=== PATIENT | female | born 1990 | race American Indian/Alaskan Native ===

== ENCOUNTER 2020-11-26 08:37 | Day surgery (SDC) | payer OTHER ==
--- NOTE | 2020-11-20 13:00 | Anesthesia Consultation ---
Anesthesia Consult and Med Hx Date of service: 11/26/20 - Airway Anesthetic Teeth Evaluation: Chipped ROM Head & Neck: Adequate Mental/Hyoid Distance: Adequate Mallampati Class: Class III Intubation Access Assessment: Probably Good - Pre-Operative Health Status ASA Pre-Surgery Classification: ASA3 Proposed Anesthetic Plan: General - Pulmonary Hx Smoking: No Hx Respiratory Symptoms: Yes (Pulmonary HTN) Hx Pneumonia: Yes (IN THE PAST) Hx Sleep Apnea: Yes (DX SLEEP APNEA) - Cardiovascular System Hx Hypertension: Yes (Systolic CHF, chronic; Dilated cardiomyopathy) Hx Internal Defibrillator: Yes (05/2019-denies discharge) - Central Nervous System Hx Neuromuscular Disorder: Yes (Bilateral optic neuritis) Hx Psychiatric Problems: Yes (Anxiety/Depression) - Endocrine Hx Non-Insulin Dependent Diabetes: Yes (PRE) - Hematic Hx Anemia: Yes (Pt had recent labs on her phone: 9.4/31.9) - Other Systems Hx Alcohol Use: No (OCCASSIONALLY) Hx Substance Use: No Hx Cancer: No Hx Obesity: Yes - Additional Comments Anesthesia Medical History Comments: Pt with CHF. Had ECHO yesterday and reports EF 20-25%. Hard results pending for our review. NST report from [id number] in her chart.
[2020-11-20 13:09] LABS: Hematocrit 27.5 % (30.3-42.9); Hemoglobin 8.6 gm/dl (10.1-14.3); Mean Corpuscular HGB Conc 31 % (30-34); Platelet Count 258 K/mm3 (140-440); Red Cell Distribution Width 16.7 % (13.2-15.2)
[2020-11-20 13:10] LABS: Mean Corpuscular Volume 69 fl (79-97)
[2020-11-20 13:28] LABS: Blood Urea Nitrogen 14 mg/dL (7-17); Calcium 8.7 mg/dL (8.4-10.2); Hemolysis Index 0
[2020-11-20 14:08] LABS: BUN/Creatinine Ratio 20
--- NOTE | 2020-11-25 16:34 | History and Physical Report ---
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 Operations: Lumbar puncture (2017)() Defibrillator placed (05/2020) Abnormal PAP: negative Infection History HIV Risk Eval: no Hx of STD: has never had sex Active Medications (reviewed today): ONDANSETRON HCL 4 MG ORAL TABLET (ONDANSETRON HCL) DICLOFENAC SODIUM 50 MG ORAL TABLET DELAYED RELEASE (DICLOFENAC SODIUM) 50 mg 3 times daily as needed for painful menstrual cramps ROCÍO-BE 0.35 MG ORAL TABLET (NORETHINDRONE) 1 tablet po daily METOLAZONE 2.5 MG ORAL TABLET (METOLAZONE) FARXIGA TABLET (DAPAGLIFLOZIN PROPANEDIOL TABS) VITAMIN B-12 1000 MCG ORAL TABLET (CYANOCOBALAMIN) ESCITALOPRAM OXALATE TABLET (ESCITALOPRAM OXALATE TABS) PROMETHAZINE HCL 25 MG RECTAL SUPPOSITORY (PROMETHAZINE HCL) 1 per rectum q6hrs prn MULTIVITAMINS ORAL CAPSULE (MULTIPLE VITAMIN) QVAR REDIHALER 40 MCG/ACT INHALATION AEROSOL BREATH ACTIVATED (BECLOMETHASONE DIPROP HFA) KLOR-CON PACKET (POTASSIUM CHLORIDE PACK) FERROUS SULFATE 325 (65 FE) MG ORAL TABLET (FERROUS SULFATE) 1 po qd FAMOTIDINE 40 MG ORAL TABLET (FAMOTIDINE) ENTRESTO TABLET (SACUBITRIL-VALSARTAN TABS) BUMETANIDE TABLET (BUMETANIDE TABS) SPIRONOLACTONE TABLET (SPIRONOLACTONE TABS) ATORVASTATIN CALCIUM TABLET (ATORVASTATIN CALCIUM TABS) CARVEDILOL TABLET (CARVEDILOL TABS) ASPIRIN 81 MG ORAL TABLET (ASPIRIN) ALBUTEROL SULFATE (2.5 MG/3ML) 0.083% INHALATION NEBULIZATION SOLUTION (ALBUTEROL SULFATE) Current Allergies (reviewed today): WELLBUTRIN SR (BUPROPION HCL) (Critical) * PINEAPPLES (Critical) Past Medical History: Reviewed history from 10/10/2020 and no changes required: CHF (2016) [employer]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) Anemia [facility] (2019) Hyperlipidemia Sleep apnea (2019) CPAP Intracranial hypertension (2017) Hypertension Depression Past Surgical History: Reviewed history from 10/10/2020 and no changes required: Lumbar puncture (2017)() Defibrillator placed (05/2020) Family History Summary: Reviewed history Last on 10/10/2020 and no changes required:11/25/2020 Other Family Member - Has No Family History of Uterine Cancer - Entered On: 01/14/2019 Other Family Member - Has No Family History of Small Bowel Cancer - Entered On: 01/14/2019 Other Family Member - Has No Family History of Stomach Cancer - Entered On: 01/14/2019 Other Family Member - Has No Family History of Pancreatic Cancer - Entered On: 01/14/2019 Other Family Member - Has No Family History of Ovarvian Cancer - Entered On: 01/14/2019 Other Family Member - Has No Family History of Kidney/Urinary Tract Cancer - Entered On: 01/14/2019 Other Family Member - Has No Family History of Spontaneous DVT-PE - Entered On: 01/14/2019 Other Family Member - Has No Family History of Colon Cancer - Entered On: 01/14/2019 Other Family Member - Has No Family History of Brain Cancer - Entered On: 01/14/2019 Other Family Member - Has No Family History of Breast Cancer - Entered On: 01/14/2019 Other Family Member - Has No Family History of Biliary Tract Cancer - Entered On: 01/14/2019 Social History: Reviewed history from 11/30/2018 and no changes required: Patient is single Smoking History: Patient has never smoked. Risk Factors: Smoked Tobacco Use: Never smoker Smokeless Tobacco Use: Never Drug use: no HIV high-risk behavior: no Alcohol use: yes Exercise: no Seatbelt use: 100 % Previous Tobacco Use: Signed On - 11/13/2020 Smoked Tobacco Use: Never smoker Smokeless Tobacco Use: Never Passive smoke exposure: no Drug use: no HIV high-risk behavior: no Previous Alcohol Use: Signed On 11/13/2020 Alcohol use: yes Type: rarely occ Drinks per day: social Exercise: no Seatbelt use: 100 % PAP Smear History: Date of Last PAP Smear: 10/10/2020 Physical Exam Appearance: well developed, well nourished, no acute distress Other Exams Lungs: no rales, rhonchi, or wheezes Heart: S1, S2, no murmur, rub, or gallop Genitourinary Exam Uterus: deferred for EUA Impression & Recommendations: Problem # 1: Excessive and frequent menstruation with regular cycle (ICD-626.2) ([id number]) Diagnosis explained to patient . Questions answered. Discussed with patient various medical and surgical therapies common for treatment: Hormonal/medical therapy,endometrial ablation or hysterectomy. Will proceed with hysteroscopy dilation and curettage at this time. She declines any further evaluation. Consent reviewed and signed . Possible laparoscopy or laparotomy explained to patient. The risks and alternatives for this surgery were reviewed with the patient. She was informed of possible bleeding, infection, injury to bowel, bladder, ureters or other adjacent organs. Also discussed possible uterine perforation and scarring that may prevent . The patient was instructed/informed the following: The normal length of hospital stay for this procedure. Nothing to eat or drink after midnight the evening prior to surgery. Pre-op instruction sheets given. Infection precautions reviewed, patient to call for any signs or symptoms of infection. The usual discomforts associated with this procedure were detailed. Proper use of pain medicines was reviewed. Patient was given ample opportunity to have all her questions answered before signing informed consent. Medications and Allergies Allergies Allergy/AdvReac Type Severity Reaction Status Date / Time bupropion [From Wellbutrin] Allergy Unknown Verified 11/20/20 15:35 pineapple AdvReac Itching Verified 11/20/20 15:35 Home Medications Medication Instructions Recorded Confirmed Last Taken Type Albuterol Sulfate [Proair 90 mcg IH PRN PRN 11/19/20 11/19/20 Unknown History Respiclick] Aspirin [Adult Aspirin] 81 mg PO DAILY 11/19/20 11/19/20 Unknown History AtorvaSTATin [Lipitor] 40 mg PO QHS 11/19/20 11/19/20 Unknown History Bumetanide 2 mg PO BID 11/19/20 11/19/20 Unknown History Dapagliflozin Propanediol [Farxiga] 10 mg PO DAILY 11/19/20 11/19/[address] (Nf) 50 mg PO TID PRN 11/19/20 11/19/20 Unknown History Escitalopram Oxalate [Lexapro] 15 mg PO DAILY 11/19/20 11/19/20 Unknown History Famotidine [Acid-Pep] 20 mg PO DAILY 11/19/20 11/19/20 Unknown History Mecobalamin [B12 Active] 1,000 mcg PO BID 11/19/20 11/19/20 Unknown History Sacubitril/Valsartan [Entresto 97 1 each PO BID 11/19/20 11/19/20 Unknown History mg-103 mg Tablet] Spironolactone 50 mg PO DAILY 11/19/20 11/19/20 Unknown History carvediloL [Coreg] 25 mg PO BID 11/19/20 11/19/20 Unknown History metOLazone [Zaroxolyn] 2.5 mg PO PRN PRN 11/19/20 11/19/20 Unknown History Beclomethasone Dipropionate [Qvar] 80 mcg IH BID 11/20/20 11/20/20 Unknown History Active Meds: Active Medications Lactated Ringer's (Lactated Ringers) 1,000 mls @ 42 mls/hr IV DIRECT THUY Cefazolin Sodium 3 gm/ Sodium (Chloride) 100 mls @ 100 mls/30 min IV PREOP NR; Protocol Results - Labs 11/20/20 12:20 11/20/20 12:20 Assessment and Plan - Patient Problems (1) Excessive and frequent menstruation with irregular cycle Status: Acute (2) Anemia Status: Acute (3) CHF (congestive heart failure) Status: Chronic (4) BMI 60.0-69.9, adult Status: Chronic
[~2020-11-26 08:37] MED LIST: LACTATED RINGERS 1,000 ML IV SCH
[2020-11-26] MEDS ORDERED: fentaNYL 100 MCG/2 ML INJ ONE (08:40)
[2020-11-26] MEDS ORDERED: propofoL 200 MG/20 ML VIAL IV ONE ×2 (08:40→13:49)
[2020-11-26] MEDS ORDERED: LIDOCAINE MPF (2%) 20 MG/1 ML VIAL 5 ML ONE (08:40)
[2020-11-26] MEDS ORDERED: HYDROcodone/ACETAMINOPHEN 5-325 MG TAB PO PRN (08:52)
[2020-11-26] MEDS ORDERED: ONDANSETRON 4 MG/2 ML INJ IV PRN ×2 (08:52→14:36)
[2020-11-26] MEDS ORDERED: fentaNYL 100 MCG/2 ML INJ IV PRN (08:52)
--- NOTE | 2020-11-26 08:52 | Anesthesia Day of Surgery ---
Anesthesia Day of Surgery - Day of Surgery Patient Examined: Yes Patient H&P Reviewed: Yes Patient is NPO: Yes Beta Blockers: Yes
[2020-11-26] MEDS ORDERED: ROCURONIUM 50 MG/5 ML INJ IV ONE (11:00)
[2020-11-26] MEDS ORDERED: SUCCINYLCHOLINE CHLORIDE 200 MG/10 ML INJ MDV ONE (11:00)
[2020-11-26] MEDS ORDERED: ONDANSETRON 4 MG/2 ML INJ ONE ×2 (11:00→14:14)
[2020-11-26] MEDS ORDERED: dexAMETHasone 20 MG/5 ML VIAL ONE (11:00)
[2020-11-26] MEDS ORDERED: KETAMINE/STERILE WATER 50 MG/ML SYRINGE ONE (11:07)
[2020-11-26] MEDS ORDERED: ePHEDrine SULFATE 50 MG/1 ML INJ ONE (11:08)
[2020-11-26] MEDS ORDERED: SUGAMMADEX SODIUM 200 MG/2 ML VIAL IV ONE (13:49)
[2020-11-26] MEDS ORDERED: .SODIUM CHLORIDE 0.9% IRRIG SOLN 3000 ML IR ONE (13:50)
--- NOTE | 2020-11-26 14:02 | Post Operative Note ---
Pre-op diagnosis: Menometrorrhagia Post-op diagnosis: same Findings: Grossly normal endometrium. ? small polyps Procedure: Diagnostic hysteroscopy, D&C, polypectomy Anesthesia: GETA Surgeon: GISELLE HEMPHILL Estimated blood loss: minimal Pathology: list (endometrial tissue) Specimen disposition: to lab Condition: stable Disposition: PACU
--- NOTE | 2020-11-26 14:07 | Discharge Summary ---
Providers - Providers Date of discharge: 11/26/20 Attending physician: GISELLE HEMPHILL Primary care physician: CAREER SERVICES ASSISTANT Hospitalization Condition: Good Procedures: Diagnostic hysteroscopy D&C, Polypectomy Hospital course: Normal Disposition: DC- TO HOME OR SELFCARE Final Discharge Diagnosis (Prints w/discharge instructions): menometrorrhagia, s/p h'scopy D&C - Discharge Diagnoses (1) Excessive and frequent menstruation with irregular cycle Status: Acute (2) Anemia Status: Chronic (3) CHF (congestive heart failure) Status: Chronic (4) BMI 60.0-69.9, adult Status: Chronic Core Measure Documentation - Palliative Care Palliative Care/ Comfort Measures: Not Applicable - Core Measures Any of the following diagnoses?: none Exam - Constitutional Vitals: Temp Pulse Resp BP Pulse Ox 98 F 70 16 112/55 97 11/26/20 09:10 11/26/20 09:10 11/26/20 09:10 11/26/20 09:10 11/26/20 09:10 Plan Activity: other (No sex, no driving for 24 hours) Weight Bearing Status: Weight Bear as Tolerated Diet: low fat, low cholesterol, low salt Special Instructions: no heavy lifting (greater than 25lbs) Follow up with: PRIMARY CAREMD [Primary Care Provider] - 48 Hours GISELLE HEMPHILL MD [Staff Physician] - (As scheduled)
[2020-11-26 16:12] VITALS: BP 119/87
--- NOTE | 2020-11-26 19:15 | Post Anesthesia Evaluation ---
- Post Anesthesia Evaluation Patient Participated: Yes Airway Patent: Yes Stable Respiratory Function: Yes Nausea/Vomiting: No Temp > 96.8F: Yes Pain Manageable: Yes Adequeate Hydration: Yes Anesthesia Complications: No
--- NOTE | 2020-11-27 15:35 | Operative Report ---
Operative Report Operative Report: Date: 11/26/2020 PREOPERATIVE DIAGNOSES: 1. Excessive and frequent menstruation with regular cycle 2. Anemia 3. BMI 63.0kg/m2 4. Congestive heart failure POSTOPERATIVE DIAGNOSES: 1. Excessive and frequent menstruation with regular cycle unresponsive to progestin therapy 2. Anemia 3. BMI 63.0kg/m2 4. Congestive heart failure 5. Uterine Polyps PROCEDURE PERFORMED: 1. Hysteroscopy. 2. Dilation and curettage (D&C) 3. Removal of uterine polyps ANESTHESIA: GETA ESTIMATED BLOOD LOSS: Less than <20 cc. INDICATIONS: This is a 30-year-old -[place] female that presents menorrhagia, anemia and CHF who has been previously unresponsive to POPs. She has never had sex and is unable to tolerate speculum and pelvic exams in the office. 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 PROCEDURE: The patient was seen in the preoperative suite. Expected procedure and postoperative course discussed with her. She was taken to the operative suite where GETA was performed. She was placed in a dorsal lithotomy position. . A bimanual exam was done, the uterus was unable to be palpated due to body habitus. She was prepped and draped in the normal sterile fashion. Timeout was performed. Her bladder was drained with the red Simons catheter which produced approximately 20 cc of clear yellow urine. The cervix and vagina were grossly normal with no obvious masses or deformities. A bivalve operative speculum was placed in the vagina and the anterior lip of the cervix was grasped with the single-tooth tenaculum. The uterus was sounded to ~8cm. The cervix was progressively dilated to allow the diagnostic hysteroscope. Under direct visualization, the ostia were within normal limits. The endometrial lining appeared thickened with a polyp noted at the left posterior fundus and left lateral lower uterine segment, however, there was no obvious evidence of malignancy. The hysteroscope was removed and a small sharp curette was placed intrauterine very carefully using anterior wall for guidance. Endometrial curettings were obtained. The endometrial sampling was placed on Telfa pad and sent to Pathology for evaluation, permanent. The hysteroscope was introduced again, no evidence of perforation was noted. Polyps appeared removed. At this point procedure was ended. The single-tooth tenaculum and speculum were removed. The cervix was found to be hemostatic. Counts were correct. Patient was taken to the PACU stable. Distention fluid: Normal saline Deficit: 100 mL
== END 2020-11-26 15:46 | disposition home or self-care (01) ==
LOC: OR 08:37
PROVIDERS: ATTEND Obstetrics & Gynecology
DX: N92.0 Excessive and frequent menstruation with regular cycle (principal); Z20.822 Contact with and (suspected) exposure to COVID-19; D64.9 Anemia, unspecified; I11.0 Hypertensive heart disease with heart failure; I50.9 Heart failure, unspecified; N84.0 Polyp of corpus uteri; E78.00 Pure hypercholesterolemia, unspecified; G47.30 Sleep apnea, unspecified; E66.9 Obesity, unspecified; E11.9 Type 2 diabetes mellitus without complications; F32.9 Major depressive disorder, single episode, unspecified; F41.9 Anxiety disorder, unspecified; Z88.8 Allergy status to other drugs, medicaments and biological substances; Z79.899 Other long term (current) drug therapy; Z79.82 Long term (current) use of aspirin; Z87.01 Personal history of pneumonia (recurrent); Z72.89 Other problems related to lifestyle; Z98.890 Other specified postprocedural states; Z68.44 Body mass index [BMI] 60.0-69.9, adult; Z86.2 Personal history of diseases of the blood and blood-forming organs and certain disorders involving the immune mechanism
CPT/HCPCS: 36415; 58558; 80048; 81025; 82962; 84703; 85027; 88305; A4217; J0330; J0690; J1100; J2405; J2704; J3010; J3490; J7120; U0003